=== PATIENT | male | born 1950 | race Caucasian/White ===

== ENCOUNTER 2019-11-03 04:50 | Inpatient (IN) ==
--- NOTE | 2019-10-13 16:04 | PAT Medication Instructions ---
Medication Instructions Date of Service October 13, 2019 Home Medications Viagra 1 tab PO UD PRN fexofenadine-pseudoephedrine [Dayna-D 12 Hour] 1 tab PO Q12H PRN latanoprost 1 drp OPHTHALMIC (EYE) PM rosuvastatin 20 mg PO QPM timolol 1 drp OPHTHALMIC (EYE) BID valsartan 160 mg PO QAM DO NOT take the morning of surgery Viagra 1 tab PO UD PRN fexofenadine-pseudoephedrine [Dayna-D 12 Hour] 1 tab PO Q12H PRN valsartan 160 mg PO QAM Take morning of surgery With a small sip of water, OTHERWISE NOTHING TO EAT OR DRINK AFTER MIDNIGHT: timolol 1 drp OPHTHALMIC (EYE) BID Take evening before surgery Viagra 1 tab PO UD PRN (if needed) fexofenadine-pseudoephedrine [Dayna-D 12 Hour] 1 tab PO Q12H PRN (if needed) latanoprost 1 drp OPHTHALMIC (EYE) PM rosuvastatin 20 mg PO QPM timolol 1 drp OPHTHALMIC (EYE) BID Other Notes If you have any questions please call us at [phone] or [phone] or [phone] or [phone]
--- NOTE | 2019-10-14 14:33 | Anesthesiology Consultation ---
Date of Service October 14, 2019 Assessment & Plan (1) Encounter for pre-operative examination: PCP clearance 10/28/2019 = Dr. Aguilar placed on verapamil after LV outflow more moderate on this year's echo and no other recommendations from today based on normal labs, EKG and chest x-ray... Will be getting Holter and MRI cardiac after surgery and has appointment with Coumadin in November... Patient cleared medically and will take valsartan day prior around noon and verapamil on morning of." Cardiology clearance (Lauren) 10/20/2019: He has good functional status at greater than 4 METS despite his severely arthritic knees, has no cardiac symptoms and was clinically euvolemic today. We should proceed with surgery, excepting a cardiovascular risk involved. An ischemic evaluation is not indicated. He does have hypertrophic cardiomyopathy with a mild gradient. I am commencing a low-dose calcium channel asad, namely verapamil 120 mg daily, which should also be taken on the morning of surgery. I have asked him to stay hydrated at all times. I believe the surgery is scheduled under epidural anesthesia; I reiterate that euvolemia should be maintained at all times; should he develop hypotension, perioperatively, he should be treated with IV fluids and Shawn-Synephrine/phenylephrine. Inotropes and other pressors will be contraindicated and should not be used." Case discussed with Dr. Sheppard. OK to proceed based on cardiology recommendations and patient's good functional status, but due to risk of hypotension spinal anesthesia contraindicated. Surgeon's office notified. Chart Review Chart Review: Acceptable Risk for Surgery and Patient seen in Pre Admission Testing Consults Requested medical & cardiac Teaching & Discussion Instructed NPO after midnight before surgery, except medications with 15 cc of water. Medication instructions provided according to the PAT guidelines. History Surgery Operation Date: 11/03/19 09:30 Proposed Procedures p Bilateral Total Knee Arthroplasty - Garth Owne DO Height/Weight Height: 5 ft 9 in Weight: 98.5 kg Allergies Allergy/AdvReac Type Severity Reaction Status Date / Time No Known Allergies Allergy Verified 10/07/19 10:49 Medications Home Medications Medication Instructions Recorded Confirmed Last Taken Viagra 1 tab PO UD PRN 10/07/19 10/07/19 Unknown fexofenadine-pseudoephedrine 1 tab PO Q12H PRN 10/07/19 10/07/19 Unknown [Dayna-D 12 Hour] latanoprost 1 drp OPHTHALMIC (EYE) PM 10/07/19 10/07/19 Unknown rosuvastatin 20 mg PO QPM 10/07/19 10/07/19 Unknown timolol 1 drp OPHTHALMIC (EYE) BID 10/07/19 10/07/19 Unknown valsartan 160 mg PO QAM 10/07/19 10/07/19 Unknown Past Medical History Medical History Asymmetric septal hypertrophy 1.8CM, with PATRICK of the mitral valve with a peak gradient of 23mmHg on echo 10/13/19. Calculus of parotid gland lump on pt's neck - ultrasound inconclusive, PCP believes to be a parotid gland stone. Pt to have neck CT, PCP following. Glaucoma [place] (hard of hearing) Hyperlipidemia Hypertension Obesity Osteoarthritis Sleep apnea CPAP Exercise / Class Metabolic Activity II 4-5 Yardwork/Stairs/Walk up hill (denies CP or SOB with 1 FOS. Has 13 steps to enter house, does multiple times per day without CP symptoms.) Past Surgical History Surgical History History of colonoscopy History of tonsillectomy Past Anesthesia History No Hx of Anesthesia Complications and No Family Hx of Anesthesia Complications History of PONV No Hx of PONV and No Hx of Motion Sickness Social History Smoking Status: Never smoker Do You Dip or Chew Tobacco: No Hx Alcohol Use: Yes Alcohol type: beer alcohol intake frequency: a few times a week Hx Substance Use: No substance use type: does not use Review of Systems Pt denies any recent chest pain, shortness of breath, palpitations, cough, fever or URI. Physical Exam Vital Signs BP: 144/83 P: 66bpm SPO2: 97% RA T: 97.9 F R: 12 ENMT Mouth: + dental restorations (one implant R side); no chipped teeth and no loose teeth Thyromental Distance: < 3.5 Finger Breadths (2) Mallampati Class: III Neck normal visual inspection; neck extension not limited Respiratory normal respiratory effort Auscultation: lungs clear to auscultation bilaterally Cardiovascular Rate/Rhythm: regular rate and regular rhythm Heart Sounds: + murmur (II/ systolic loudest at RSB and mitral areas) Vessels: no carotid bruit Extremities: no edema Testing Laboratory Results 10/14/19 14:45 10/14/19 14:45 PT 10.1 Seconds (9.0-12.0) 10/14/19 14:45 INR 1.0 (0.9-1.1) 10/14/19 14:45 APTT 24.8 Seconds (21.0-31.0) 10/14/19 14:45 Hemoglobin A1c 4.9 % (4.5-5.6) 10/14/19 14:45 Urine Color Yellow 10/14/19 14:45 Urine Appearance Clear (Clear) 10/14/19 14:45 Urine pH 7.0 (4.5-7.5) 10/14/19 14:45 Ur Specific [place] 1.013 (1.000-1.030) 10/14/19 14:45 Urine Protein Negative (Negative) 10/14/19 14:45 Urine Glucose (UA) Negative (Negative) 10/14/19 14:45 Urine Ketones Negative (Negative) 10/14/19 14:45 Urine Nitrite Negative (Negative) 10/14/19 14:45 Ur Leukocyte Esterase Negative (Negative) 10/14/19 14:45 Blood Type A Positive 10/14/19 14:45 Antibody Screen NEGATIVE 10/14/19 14:45 10/14/19 14:45 Urine Culture - Final Urine,Clean Catch No growth - less than 1,000 colonies/mL. Electrocardiogram Date: 10/14/19 Findings: + NSR @ (65bpm) Left axis deviation. Chest X-Ray Date: 10/14/19 Findings: + NAD Echocardiogram Date: 10/13/19 EF: 60-65% Moderate asymmetric septal hypertrophy (1.8 cm) with PATRICK of the mitral valve with a peak gradient of 23 mmHg across the LVOT at resting EF of 60 to 65%. Right ventricle is normal in size and contractility. Degenerative aortic valve with mean gradient of 15 mmHg across it, which is obscured by the gradient across the LVOT.
--- NOTE | 2019-10-14 15:18 | XRay Report ---
XR chest Pre-admission PA/Lat HISTORY: 68 years-old Male pat preoperative exam. No acute chest complaints COMPARISON: None available TECHNIQUE: PA and lateral views of the chest FINDINGS: Mild blunting of the posterior costophrenic angles may be secondary to atelectasis versus trace effus ions. Cardiac silhouette is mildly enlarged. No pneumothorax, overt pulmonary edema or focal airspace consolidation. Degenerative changes of the shoulders and spine. IMPRESSION: No acute process. The above report was generated using voice recognition software. It may contain grammatical, syntax o r spelling errors. Electronically signed by: Arcadio Mayes M.D. 10/14/2019 3:16 PM
[2019-10-14 15:30] LABS: Basophils # (auto) 0.05 K/uL (0-0.2); Basophils % (auto) 0.6 %; Eosinophils # (auto) 0.12 K/uL (0-0.5); Eosinophils % (auto) 1.4 %; Hematocrit (blood only) 45.3 % (42-52); Hemoglobin 15.8 g/dL (14.0-18.0); Immature Granulocytes # (auto) 0.02 K/uL (0.00-0.02); Immature Granulocytes % (auto) 0.2 %; Lymphocytes # (auto) 2.18 K/uL (1.2-3.4); Lymphocytes % (auto) 26.2 %; Mean Corpuscular Hemoglobin 30.9 pg (25-34); Mean Corpuscular Hgb Conc 34.9 g/dL (32-36); Mean Corpuscular Volume 88.5 fL (80-100); Mean Platelet Volume 10.6 fL (7.4-10.4); Monocytes # (auto) 0.47 K/uL (0.11-0.59); Monocytes % (auto) 5.7 %; Neutrophils # (auto) 5.47 K/uL (1.4-6.5); Neutrophils % (auto) 65.9 %; Platelet Count 199 K/uL (130-400); RDW Coefficient of Variation 12.7 % (11.5-14.5); RDW Standard Deviation 40.8 fL (36.4-46.3); Red Blood Count 5.12 M/uL (4.7-6.1); White Blood Count 8.31 K/uL (4.8-10.8)
[2019-10-14 15:37] LABS: Albumin Level 4.4 gm/dl (3.4-5.0); BUN Creatinine Ratio 14.8 (10-20); Calcium 9.4 mg/dl (8.5-10.1); Creatinine Clr Calc Pharmacy 95.6 ml/min; Est GFR (African American) 103.7; Est GFR (Non-African American) 89.5; Potassium 4.2 mmol/L (3.5-5.1)
[2019-10-14 15:40] LABS: Appearance Urine Clear (Clear); Bilirubin Urine Negative (Negative); Blood Urine Negative (Negative); Color Urine Yellow; Glucose Urine UA Negative (Negative); Ketones Urine Negative (Negative); Leukocyte Esterase Urine Negative (Negative); Nitrite Urine Negative (Negative); Protein Urine Negative (Negative); Specific Gravity Urine 1.013 (1.000-1.030); Urobilinogen Urine Negative (Negative)
[2019-10-14 15:42] LABS: Partial Thromboplastin Ratio 0.9; Partial Thromboplastin Time 24.8 Seconds (21.0-31.0); Prothrombin Time 10.1 Seconds (9.0-12.0)
[2019-10-15 06:26] LABS: Estimated Average Glucose 94 mg/dl; Hemoglobin A1C 4.9 % (4.5-5.6)
--- NOTE | 2019-11-02 12:55 | History & Physical Report ---
Date of Service November 02, 2019 Assessment & Plan (1) Degenerative joint disease of knee, right: I have indicated the patient for bilateral total knee replacements. The risks, benefits and complications of surgery were explained to the patient which include but not limited to infection, acute blood loss, DVT/PE, injury to nerves, vessels, bone, soft tissue, arthrofibrosis, chronic pain, failure of the prosthesis, knee dislocation, leg length discrepancy, need for additional surgery, cardiac and pulmonary events and . Emphasis was placed on increased risks associated with bilateral total knee replacements. The patient expressed understanding and all questions were answered to satisfaction. The patient wished to proceed with surgery and informed consent was obtained at this time. We will plan for Lovenox post-operatively for DVT prophylaxis. Upon discharge the patient will be discharged home with home health services. Appropriate clearances by PCP and cardiology were obtained. (2) Degenerative joint disease of left knee: History of Present Illness Chief Complaint: Bilateral knee pain/djd Primary Care Provider: CYNDI SHAH The patient is a 68 year old male who presents with complaints of severe bilateral knee pain and DJD. The patient has failed outpatient conservative treatments to this point which included NSAIDs, IA corticosteroid injections, home exercise/walking program. The patient's pain and limited function have progressed to the point where they severely hinder their activities of daily kendall ing and they no longer tolerate exercise programs. They are requesting to proceed with total knee replacement surgery. Allergies Allergy/AdvReac Type Severity Reaction Status Date / Time No Known Allergies Allergy Verified 11/03/19 05:37 Home Medications Home Medications Medication Instructions Recorded Confirmed Type Viagra 1 tab PO UD PRN 10/07/19 11/03/19 History fexofenadine-pseudoephedrine 1 tab PO Q12H PRN 10/07/19 11/03/19 History [Dayna-D 12 Hour] latanoprost 1 drp OPHTHALMIC (EYE) PM 10/07/19 11/03/19 History rosuvastatin 20 mg PO QPM 10/07/19 11/03/19 History timolol 1 drp OPHTHALMIC (EYE) BID 10/07/19 11/03/19 History valsartan 160 mg PO QAM 10/07/19 11/03/19 History verapamil 120 mg PO DAILY 11/03/19 11/03/19 History Past Med/Surg History Medical History Asymmetric septal hypertrophy 1.8CM, with PARTICK of the mitral valve with a peak gradient of 23mmHg on echo 10/13/19. Calculus of parotid gland lump on pt's neck - ultrasound inconclusive, PCP believes to be a parotid gland stone. Pt to have neck CT, PCP following. Glaucoma [place] (hard of hearing) Hyperlipidemia Hypertension Obesity Osteoarthritis Sleep apnea CPAP Surgical History History of colonoscopy History of tonsillectomy Social History Preferred Language: Welsh Communication Ability: Effective Sweat Box Attendant Required: No Beliefs That Will Affect Care: None Current Living Situation: Spouse Other Information That Helps Us Care for You: No Feels Safe at Home: Yes Safety Concerns: Feels Safe At This Time Smoking Status: Never smoker Do You Dip or Chew Tobacco: No ; Second Hand Exposure: Yes (as a child) ; Hx Alcohol Use: Yes Alcohol type: beer Hx Substance Use: No Review of Systems Review of Systems: All systems reviewed & are unremarkable except as noted in HPI & below Constitutional: as per Subjective / HPI Physical Exam Physical Exam: RLE NVSI +EHL/FHL/TA/GS SILT grossly, +2 DP pulse, compartments soft NT, limited painful ROM 0-115 degrees of flexion, +crepitus LLE NVSI +EHL/FHL/TA/GS SILT grossly, +2 DP pulse, compartments soft NT, limited painful ROM 0-115 degrees of flexion, +crepitus Constitutional: WD/WN, vitals as above Eyes: PERRL, conjunctivae normal, anicteric sclerae ENMT: external ear and nose normal, oropharynx normal Neck: trachea midline, no thyromegaly Respiratory: normal respiratory effort, lungs clear to auscultation Cardiovascular: RRR, no murmur, no edema Gastrointestinal (Abdomen): normal bowel sounds, soft, nontender, no hepatosplenomegaly Musculoskeletal: no cyanosis or clubbing, extremities motor strength 5/5 Skin: no rashes, warm and dry Neurologic: patellar DTR's 2+ bilat, sensation intact Psychiatric: A+Ox3, euthymic affect Lymphatic: no cervical or axillary lymphadenopathy Results & Data Diagnostic Findings Multiple views of bilateral knees demonstrate severe tricompartmental DJD with complete loss of the medial and near complete loss of the patellofemoral joint spaces. +osteophytes, +sclerosis.
[2019-11-03] MEDS ORDERED: CEFAZOLIN 2000MG 2,000 MG/15 ML SYR IV SCH (06:00)
[2019-11-03] MEDS ORDERED: ACETAMINOPHEN 500 MG TAB PO SCH (06:00)
[2019-11-03] MEDS ORDERED: ROPIVACAINE 0.5% HCL/PF 150 MG, BUPIVACAINE 0.5% MPF 30 ML, EPINEPHrine 30MG/30ML (OR U... INFIL SCH (06:00)
[2019-11-03] MEDS ORDERED: LR 500ML BOLUS, THEN 15ML/HR IV SCH (06:00)
[2019-11-03] MEDS ORDERED: dexAMETHasone 4 MG TAB PO SCH (06:00)
[2019-11-03] MEDS ORDERED: CeleBREX 200 MG CAP PO SCH (06:00)
[2019-11-03] MEDS ORDERED: METOCLOPRAMIDE HCL 10 MG TABLET PO SCH (06:00)
[2019-11-03] MEDS ORDERED: FAMOTIDINE 20 MG TAB PO SCH (06:00)
[2019-11-03] MEDS ORDERED: TRANEXAMIC ACID 1,000 MG **IV Pre-op IV SCH (06:00)
[2019-11-03] MEDS ORDERED: ROPIVACAINE 0.5% 5 MG/ML 30 ML VIAL ONE (06:28)
[2019-11-03] MEDS ORDERED: BUPIVACAINE 0.5 % 5 MG/1 ML PF 10ML VIAL ONE (06:28)
[2019-11-03] MEDS ORDERED: TRANEXAMIC ACID 1,000 MG **IV Intra-op IV SCH (06:30)
[2019-11-03] MEDS ORDERED: ORTHO JOINT ANESTHETIC ONE (06:36)
[2019-11-03] MEDS ORDERED: BACITRACIN INJ 50,000 UNIT VIAL ONE (06:36)
[2019-11-03] MEDS ORDERED: MIDAZOLAM HCL 1 MG/ML 2ML VIAL ONE ×4 (06:48→08:02)
--- NOTE | 2019-11-03 06:48 | History & Physical Bridge Note ---
Date of Service November 03, 2019 History & Physical Bridge Note I have examined the patient, reviewed the History & Physical and in the interval since the performance of the History & Physical I have noted the following changes of clinical significance: no changes noted
[2019-11-03] MEDS ORDERED: fentaNYL citrate 100 MCG/2 ML VIAL ONE (06:49)
[2019-11-03] MEDS ORDERED: METOCLOPRAMIDE HCL INJ 5 MG/ML 2 ML VIAL IV PRN ×2 (07:53→11:48)
[2019-11-03] MEDS ORDERED: ONDANSETRON INJ 2 MG/ML 2 ML VIAL IV PRN ×2 (07:53→11:48)
[2019-11-03] MEDS ORDERED: ePHEDrine sulfate 50 MG/ML AMP IV PRN (07:53)
[2019-11-03] MEDS ORDERED: PROMETHAZINE HCL 12.5 MG in SODIUM CHLORIDE 0.9% 50 ML IV PRN (07:53)
[2019-11-03] MEDS ORDERED: HYDROmorphone INJ 2 MG/ML SYR/VIAL IV PRN (07:53)
[2019-11-03] MEDS ORDERED: fentaNYL citrate 100 MCG/2 ML VIAL IV PRN (07:53)
[2019-11-03] MEDS ORDERED: ATROPINE SULFATE 0.1 MG/ML 10ML SYR IV PRN (07:53)
[2019-11-03] MEDS ORDERED: PROPOFOL IV EMULSION 10 MG/ML 20 ML VIAL IV ONE ×3 (08:02→10:30)
[2019-11-03] MEDS ORDERED: PHENYLEPHRINE HCL 10 MG/ML VIAL ONE (08:06)
[2019-11-03] MEDS ORDERED: PHENYLEPHRINE 100MCG/ML 5ML SYR ONE ×2 (08:06→08:47)
--- NOTE | 2019-11-03 10:23 | Post Operative Brief Note ---
Immediate Post Op Note v1 Date of Surgery November 03, 2019 Pre & Post Diagnosis Operation Date: 11/03/19 07:00 Pre-Op Diagnosis: Bilateral Knee Degenerative Joint Disease Post-Op Diagnosis: Bilateral Knee Degenerative Joint Disease I identified the patient and participated in the time-out.: Yes Procedure Operation Date: 11/03/19 07:00 Actual Procedures p Bilateral Total Knee Arthroplasty(Bilateral) - Garth Oewn DO Surgeon Garth Owen DO Hydrotherapist Cyrus Cobb Estimated Blood Loss 100 (50 ml right knee, 50 ml left knee) Findings Consistent with Post-Op Diagnosis Fluids 3000 cc LR Specimens Proximal tibia and distal femur bone fragments Drains Moreno Catheter (A 16 [place] moreno catheter was inserted by Charlotte Li RN, without difficulty, clear yellow urine obtained, output to be monitored by Anesthesia.) Anesthesia Type Spinal MAC Complications none Disposition Disposition: Recovery Room Overlapping Procedure I was present for: the critical portions of procedure. I was immediately available: during the entire case. Back up surgeon: was not required during procedure.
[2019-11-03] MEDS ORDERED: ONDANSETRON INJ 2 MG/ML 2 ML VIAL ONE (10:30)
--- NOTE | 2019-11-03 10:35 | Operative Report ---
Post Operative Report Pre & Post Diagnosis Operation Date: 11/03/19 07:00 Pre-Op Diagnosis: Bilateral Knee Degenerative Joint Disease Post-Op Diagnosis: Bilateral Knee Degenerative Joint Disease I identified the patient and participated in the time-out.: Yes Procedure Operation Date: 11/03/19 07:00 Actual Procedures p Bilateral Total Knee Arthroplasty(Bilateral) - Garth Owen DO Surgeon Garth Owen, Supervisor [employer] Cyrus Cobb Estimated Blood Loss 100 (50 ml right knee, 50 ml left knee) Findings Consistent with Post-Op Diagnosis Fluids 300 cc KR Specimens Proximal tibia and distal femur bone fragments Anesthesia Type Spinal MAC Complications none Disposition Disposition: Recovery Room Indications The patient is a 62-year-old male presents with long history of severe bilateral knee tricompartmental DJD and failed outpatient conservative treatments including NSAIDs, injections and home walking/exercise program. The patient's symptoms have progressed to the point where it has been difficult to perform normal activities of daily living. I have indicated the patient for a bilateral total knee arthroplasty, the risks and benefits and complications of the procedure include but are not limited to infection bleeding damage to bone, nerves, vessels, surrounding soft tissue, blood clots, loss of function, leg length discrepancy, dislocation, failure of the components, need for additional surgery and . The patient wished to proceed with surgery at this time and informed consent was obtained. Appropriate clearances were obtained. Description of Procedure COMPONENTS USED: Marianne persona total knee system: Left: Femur size 8, Tibia size G tibial articulating surface 13 PS, Patella 35 mm Right: Femur size 8, Tibia size G tibial articulating surface 11 PS, Patella 35 mm Following induction of spine anesthesia, a tourniquet was applied to the proximal aspect of bilateral thighs and the patient's bilateral legs were prepped and draped in the usual sterile manner. A timeout was performed, patient identified and site jamaal confirmed. Appropriate pre-operative IV antibiotics were given. The right limb was exsanguinated with an Esmarch bandage and tourniquet was inflated to 300 mmHg. A longitudinal midline incision was made over the anterior knee. Subcutaneous tissue was sharply disse cted down to fascia. Electrocautery was used for hemostasis. Next a parapatellar arthrotomy was performed. Patella was everted and the knee was flexed. A Donnelly retractor was used to expose the synovium above on the anterior aspect of the femur and removed down to bone. Next, the anterior fat pad was removed to aid in visualization. The medial face of the tibia was cleared of soft tissue first with a Bovie and a meraz elevator. This tissue was retracted posteriorly using a blunt Hohmann. Next, the extra-medullary tibial cutting guide was placed to the anterior aspect of the tibia. The tibia resection level was set taking 2mm from the defective tibial condyle. Resection depth was once again confirmed with jay jay wing. The medial and lateral collateral ligament was protected with two Hohmann retractors. The tibia guide was removed and proximal tibial bone fragment removed utilizing straight osteotome, electrocautery and Carmelo. Next, the distal femur intramedullary canal was accessed utilizing the step drill. The intramedullary distal femur cutting guide was placed into the canal and pinned into place. The distal femur was cut on the 5 degree +0 setting. Next the cutting guide was removed and the femur was sized. Care was taken to ensure appropriate health it specialist all rotation and 3 degree holes were drilled. A size 8 4-in-1 cutting block was placed on the distal end of the femur and secured into place with two short headed screws. Two bent Hohmann retractors were placed to protect the medial and lateral collateral ligaments. The oscillating saw was used to cut anterior, posterior, anterior chamfer and posterior chamfer. The four and one cutting block was removed and bone fragments excised. Laminar acute care registered nurse was placed laterally and the ACL and PCL were removed followed by the medial meniscus and posterior medial osteophytes. Aquamantys was utilized for any posterior medial bleeders and Orthomix injected into the posterior medial capsule. A laminar acute care registered nurse was then placed in the medial compartment and the lateral meniscus and posterior osteophytes were removed. Aquamantys was utilized for any posterior lateral bleeders and Orthomix injected into the posterior lateral capsule. Next, drop hilda and spacer block were placed with the leg in flexion and extension to assess alignment and flexion/extension gaps. Next, the proximal tibia was assessed and two bent Hohmans were placed medial and lateral to aid in visualization. The appropriate tibia size and rotation was selected and a size G tibial plate was pinned into place with appropriate rotation. Preparation of the tibia was completed utilizing the matching tibial drill and broach. I then turned my attention back to the distal femur in a trial femoral component was impacted into place. Appropriate femoral width was assessed and selected. Next the femur PS box cut guide was placed and cut made with the reciprocal saw and the PS box provisional placed. A trial size 10 PS tibia articular tray was placed and varus-valgus balance assessed in 0 degrees of extension and 30, 60 and 90 degrees of flexion. A final tibial articular surface size 11 PS was chosen. Assess was gained to the patella and caliper utilized to measure width. The patella reamer was utilized and remaining bone removed with oscillating saw. A size 35 mm patella button was selected and the patella pegs drilled. Trial patella button was placed and tracking was assessed. The knee was found to be well balanced, well aligned with excellent patella tracking. The trials were removed and final components were obtained and assembled. The knee was irrigated copiously with sterile saline solution mixed with bacitracin. Access to the proximal tibia was once again obtained utilizing to the Hohmans and the proximal tibia and distal femur were dried with lap sponges. The final components were cemented into place and all excess cement was removed. A trial tibial articular surface was placed while cemented hardened. Knee stability was once again assessed and the final component inserted. A Betadine soak was performed. After 3 minutes, the hip was once more irrigated with copious sterile saline solution with bacitracin. The knee was injected with the remaining Orthomix which includes a combination of Ropivicaine 0.5% 150mg, Bupivicaine 0.5%/Epinephrine 1:200,000 30ml, Toradol 30mg, Dexamethasone 4mg, Ketamine 10mg, Clonidine 100mcg and NSS 30ml solution. The capsulotomy was closed with #1 Vicryl followed by subcutaneous closure with 2-0 Vicryl suture and a 3-0 V-lock suture. Skin closure was performed using Prineo dressing followed by Telfa, 4 x 4s and kayla wrap. Tourniquet was deflated at 86 minutes. A second timeout was performed, patient identified and site jamaal confirmed. Appropriate pre-operative IV antibiotics were verified given. The left limb was exsanguinated with an Esmarch bandage and tourniquet was inflated to 300 mmHg. A longitudinal midline incision was made over the anterior knee. Subcutaneous tissue was sharply dissected down to fascia. Electrocautery was used for hemostasis. Next a parapatellar arthrotomy was performed. Patella was everted and the knee was flexed. A Donnelly retractor was used to expose the synovium above on the anterior aspect of the femur and removed down to bone. Next, the anterior fat pad was removed to aid in visualization. The medial face of the tibia was cleared of soft tissue first with a Bovie and a meraz elevator. This tissue was retracted posteriorly using a blunt Hohmann. Next, the extra-medullary tibial cutting guide was placed to the anterior aspect of the tibia. The tibia resection level was set taking 2mm from the defective tibial condyle. Resection depth was once again confirmed with jay jay wing. The medial and lateral collateral ligament was protected with two Hohmann retractors. The tibia guide was removed and proximal tibial bone fragment removed utilizing straight osteotome, electrocautery and Carmelo. Next, the distal femur intramedullary canal was accessed utilizing the step drill. The intramedullary distal femur cutting guide was placed into the canal and pinned into place. The distal femur was cut on the 5 degree +0 setting. Next the cutting guide was removed and the femur was sized. Care was taken to ensure appropriate health it specialist all rotation and 3 degree holes were drilled. A size 8 4-in-1 cutting block was placed on the distal end of the femur and secured into place with two short headed screws. Two bent Hohmann retractors were placed to protect the medial and lateral collateral ligaments. The oscillating saw was used to cut anterior, posterior, anterior chamfer and posterior chamfer. The four and one cutting block was removed and bone fragments excised. Laminar acute care registered nurse was placed laterally and the ACL and PCL were removed followed by the medial meniscus and posterior medial osteophytes. Aquamantys was utilized for any posterior medial bleeders and Orthomix injected into the posterior medial capsule. A laminar acute care registered nurse was then placed in the medial compartment and the lateral meniscus and posterior osteophytes were removed. Aquamantys was utilized for any posterior lateral bleeders and Orthomix injected into the posterior lateral capsule. Next, drop hilda and spacer block were placed with the leg in flexion and extension to assess alignment and flexion/extension gaps. Next, the proximal tibia was assessed and two bent Hohmans were placed medial and lateral to aid in visualization. The appropriate tibia size and rotation was selected and a size G tibial plate was pinned into place with appropriate rotation. Preparation of the tibia was completed utilizing the matching tibial drill and broach. I then turned my attention back to the distal femur in a trial femoral component was impacted into place. Appropriate femoral width was assessed and selected. Next the femur PS box cut guide was placed and cut made with the reciprocal saw and the PS box provisional placed. A trial size 12 PS tibia articular tray was placed and varus-valgus balance assessed in 0 degrees of extension and 30, 60 and 90 degrees of flexion. A final tibial articular surface size 13 PS was chosen. Assess was gained to the patella and caliper utilized to measure width. The patella reamer was utilized and remaining bone removed with oscillating saw. A size 35 mm patella button was selected and the patella pegs drilled. Trial patella button was placed and tracking was assessed. The knee was found to be well balanced, well aligned with excellent patella tracking. The trials were removed and final components were obtained and assembled. The knee was irrigated copiously with sterile saline solution mixed with bacitracin. Access to the proximal tibia was once again obtained utilizing to the Hohmans and the proximal tibia and distal femur were dried with lap sponges. The final components were cemented into place and all excess cement was removed. A trial tibial articular surface was placed while cemented hardened. Knee stability was once again assessed and the final component inserted. A Betadine soak was performed. After 3 minutes, the hip was once more irrigated with copious sterile saline solution with bacitracin. The knee was injected with the remaining Orthomix which includes a combination of Ropivicaine 0.5% 150mg, Bupivicaine 0.5%/Epinephrine 1:200,000 30ml, Toradol 30mg, Dexamethasone 4mg, Ketamine 10mg, Clonidine 100mcg and NSS 30ml solution. The capsulotomy was c losed with #1 Vicryl followed by subcutaneous closure with 2-0 Vicryl suture and a 3-0 V-lock suture. Skin closure was performed using Prineo dressing followed by Telfa, 4 x 4s and kayla wrap. Tourniquet was deflated at 87 minutes. The patient tolerated the procedures well and was taken to the PACU in stable condition. Due to the complex nature of the procedure, the entire surgery was performed with the operational assistance of Cyrus cobb PA-C. The operator/assistant foreman, under direct supervision, was involved in the actual performance of all aspects of the surgical procedure including patient positioning, hemostasis, tissue retraction, instrument management and wound closure. I attest to the content of the Intraoperative Record and any orders documented therein. Any exceptions are noted below.
--- NOTE | 2019-11-03 11:26 | Anesthesiology Progress Note ---
Date of Service November 03, 2019 Anesthesia Post Procedure Vital Signs Vital Signs: Temp Pulse Resp BP Pulse Ox 11/03/19 11:20 36.4 C L 77 20 131/71 94 11/03/19 11:10 79 14 125/68 96 11/03/19 11:00 83 23 120/73 94 11/03/19 10:50 36.4 C L 84 18 112/65 98 11/03/19 05:43 36.8 C 97 H 18 155/80 H 97 Pain Intensity Bilateral Knee: Pain Intensity: 5 Transfer of Care Handoff Completed per policy Notes Mental Status: alert / awake / arousable and participated in evaluation Patient Amnestic to Procedure: Yes Nausea / Vomiting: adequately controlled Pain: adequately controlled Airway Patency, RR, SpO2: stable & adequate BP & HR: stable & adequate Hydration State: stable & adequate Neuraxial Anesthesia: was administered and sensory block is resolving Anesthetic Complications: no major complications apparent
--- NOTE | 2019-11-03 11:45 | XRay Report ---
XR knee RT 1 or 2V routine CLINICAL HISTORY: 68 years-old Male presenting with Surgical Post Op. TECHNIQUE: Frontal and crosstable lateral views of the right knee were obtained. COMPARISON: None. FINDINGS: Post surgical changes of total right knee arthroplasty with patellar resurfacing. Expected intra-sonal cular and soft tissue emphysema. A large joint effusion is present. No periprosthetic fracture or gaye ency. No malalignment. IMPRESSION: Expected postsurgical appearance status post total right knee arthroplasty with patellar resurfacing. Electronically signed by: Tu Marley M.D. 11/03/2019 11:43 AM
--- NOTE | 2019-11-03 11:46 | XRay Report ---
XR knee LT 1 or 2V routine CLINICAL HISTORY: 68 years-old Male presenting with Surgical Post Op. TECHNIQUE: Frontal and crosstable lateral views of the left knee were obtained. COMPARISON: None. FINDINGS: Postsurgical changes of total left knee arthroplasty with patellar resurfacing. Expected intra-articu lar and soft tissue emphysema. No malalignment. No periprosthetic fracture or lucency. IMPRESSION: Expected postsurgical appearance status post total left knee arthroplasty with patellar resurfacing. Electronically signed by: Tu Marley M.D. 11/03/2019 11:44 AM
[2019-11-03] MEDS ORDERED: NALOXONE HCL 0.4 MG/1 ML VIAL/CARP IV PRN (11:48)
[2019-11-03] MEDS ORDERED: bisacodyL 10 MG SUPP PR PRN (11:48)
[2019-11-03] MEDS ORDERED: HYDROmorphone INJ 0.5 MG/0.5 ML SYR IV PRN (11:48)
[2019-11-03] MEDS ORDERED: MAGNESIUM HYDROXIDE SUSP 30 ML UDC PO PRN (11:48)
[2019-11-03] MEDS ORDERED: SODIUM CHLORIDE 0.9% 1000ML 1,000 ML IV SCH (11:48)
[2019-11-03] MEDS: ACETAMINOPHEN 500 MG TAB PO SCH ×2 (13:24→21:24)
[2019-11-03] MEDS: OXYCODONE HCL IR 5 MG TAB (IMMEDIATE RELEASE) PO PRN (13:27)
[2019-11-03] MEDS: CEFAZOLIN 2000MG 2,000 MG/15 ML SYR IV SCH ×2 (15:26→23:21)
--- NOTE | 2019-11-03 18:30 | Orthopedic Progress Note ---
Date of Service November 03, 2019 Assessment & Plan (1) Degenerative joint disease of knee, right: s/p B/L TKA -ancef x 24 -DVT ppx: SCDs, TEDs, Lovenox daily -WBAT B/L LE -PT/OT -PO XR demonstrates well aligned well fixed b/l total knee prothesis without fracture/dislocation -am labs -DC planning (2) Degenerative joint disease of left knee: Subjective Post Operative Progress Note Patient seen sitting up in bed, comfortable, denies complaints, pain well controlled, no acute issues. Review of Systems Review of Systems: All systems reviewed & are unremarkable except as noted in HPI & below Constitutional: as per Subjective / HPI Physical Exam Physical Exam: RLE NVSI +EHL/FHL/TA/GS SILT grossly, +2 DP pulse, compartments soft NT, dressing cdi. LLE NVSI +EHL/FHL/TA/GS SILT grossly, +2 DP pulse, compartments soft NT, dressing cdi. Constitutional: WD/WN, vitals as above Results & Data Vital Signs (Past 12 Hours) Vital Signs Temp Pulse Resp BP Pulse Ox 11/03/19 14:46 36.5 C 85 18 123/81 96 11/03/19 13:45 36.8 C 87 18 127/68 96 11/03/19 12:46 86 18 132/73 95 11/03/19 12:14 36.4 C L 77 18 124/69 96 11/03/19 11:45 36.4 C L 79 16 123/70 94 11/03/19 11:30 79 18 127/73 92 11/03/19 11:20 36.4 C L 77 20 131/71 94 11/03/19 11:10 79 14 125/68 96 11/03/19 11:00 83 23 120/73 94 11/03/19 10:50 36.4 C L 84 18 112/65 98
[2019-11-03] MEDS: LATANOPROST 0.005% OP SOLN 2.5 ML BTL OPB SCH (20:03)
[2019-11-03] MEDS: DOCUSATE SODIUM 100 MG CAP PO SCH (20:04)
[2019-11-03] MEDS: TIMOLOL MALEATE 0.5% OP SOLN 5 ML BTL OPB SCH (20:04)
[2019-11-03] MEDS: ROSUVASTATIN CALCIUM 20 MG TAB PO SCH (20:04)
[2019-11-03] MEDS: SENNA 8.6 MG TAB PO SCH (20:04)
[2019-11-04] MEDS: OXYCODONE HCL IR 5 MG TAB (IMMEDIATE RELEASE) PO PRN ×5 (03:02→21:23)
[2019-11-04 05:19] LABS: Hemoglobin 12.2 g/dL (14.0-18.0); Mean Corpuscular Hemoglobin 30.4 pg (25-34); Mean Corpuscular Hgb Conc 34.9 g/dL (32-36); Mean Corpuscular Volume 87.3 fL (80-100); Mean Platelet Volume 10.6 fL (7.4-10.4); Platelet Count 190 K/uL (130-400); RDW Coefficient of Variation 12.6 % (11.5-14.5); RDW Standard Deviation 40.6 fL (36.4-46.3); Red Blood Count 4.01 M/uL (4.7-6.1); White Blood Count 18.54 K/uL (4.8-10.8)
[2019-11-04 05:44] LABS: Calcium 8.1 mg/dl (8.5-10.1); Creatinine Clr Calc Pharmacy 83.2 ml/min; Est GFR (African American) 89.4; Est GFR (Non-African American) 77.1; Potassium 4.2 mmol/L (3.5-5.1)
[2019-11-04] MEDS: ACETAMINOPHEN 500 MG TAB PO SCH ×3 (05:58→21:25)
--- NOTE | 2019-11-04 08:12 | Anesthesiology Progress Note ---
Date of Service November 04, 2019 Anesthesia Post Procedure Vital Signs Vital Signs: Temp Pulse Resp BP Pulse Ox 11/04/19 02:52 36.7 C 92 H 16 123/66 97 11/03/19 22:55 36.5 C 89 16 137/72 95 11/03/19 14:46 36.5 C 85 18 123/81 96 11/03/19 13:45 36.8 C 87 18 127/68 96 11/03/19 12:46 86 18 132/73 95 11/03/19 12:14 36.4 C L 77 18 124/69 96 11/03/19 11:45 36.4 C L 79 16 123/70 94 11/03/19 11:30 79 18 127/73 92 11/03/19 11:20 36.4 C L 77 20 131/71 94 11/03/19 11:10 79 14 125/68 96 11/03/19 11:00 83 23 120/73 94 11/03/19 10:50 36.4 C L 84 18 112/65 98 Pain Intensity Bilateral Knee: Pain Intensity: 0 Notes Mental Status: alert / awake / arousable and participated in evaluation Patient Amnestic to Procedure: Yes Nausea / Vomiting: adequately controlled Pain: adequately controlled Airway Patency, RR, SpO2: stable & adequate BP & HR: stable & adequate Hydration State: stable & adequate Neuraxial Anesthesia: sensory block resolved Anesthetic Complications: no major complications apparent
[2019-11-04] MEDS: VERAPAMIL HCL 120 MG TABCR PO SCH (08:47)
[2019-11-04] MEDS: VALSARTAN 80 MG TAB PO SCH (08:47)
[2019-11-04] MEDS: DOCUSATE SODIUM 100 MG CAP PO SCH ×2 (08:47→21:25)
[2019-11-04] MEDS: ENOXAPARIN INJ 40 MG/0.4 ML SYR SQ SCH (08:48)
[2019-11-04] MEDS: MULTIVITAMIN TAB PO SCH (08:49)
[2019-11-04] MEDS: TIMOLOL MALEATE 0.5% OP SOLN 5 ML BTL OPB SCH ×2 (08:49→21:24)
--- NOTE | 2019-11-04 09:40 | Orthopedic Progress Note ---
Date of Service November 04, 2019 Assessment & Plan (1) Degenerative joint disease of knee, right: s/p B/L TKA POD#1 -ancef x 24 -DVT ppx: SCDs, TEDs, Lovenox daily -WBAT B/L LE -PT/OT -PO XR demonstrates well aligned well fixed b/l total knee prothesis without fracture/dislocation -am labs: hgb 12.2 -DC planning: home with HH (2) Degenerative joint disease of left knee: Subjective Post Operative Progress Note Patient seen sitting up in bed, comfortable, denies complaints, pain well controlled, no acute issues. Denies F/C/N/V/SOP/CP Review of Systems Review of Systems: All systems reviewed & are unremarkable except as noted in HPI & below Constitutional: as per Subjective / HPI Physical Exam Physical Exam: RLE NVSI +EHL/FHL/TA/GS SILT grossly, +2 DP pulse, compartments soft NT, dressing cdi. LLE NVSI +EHL/FHL/TA/GS SILT grossly, +2 DP pulse, compartments soft NT, dressing cdi. Constitutional: WD/WN, vitals as above Results & Data Vital Signs (Past 12 Hours) Vital Signs Temp Pulse Resp BP Pulse Ox 11/04/19 06:45 36.7 C 78 12 134/72 96 11/04/19 02:52 36.7 C 92 H 16 123/66 97 11/03/19 22:55 36.5 C 89 16 137/72 95 Laboratory Results 11/04/19 11/04/19 Range/Units 04:45 04:45 WBC 18.54 H (4.8-10.8) K/uL RBC 4.01 L (4.7-6.1) M/uL Hgb 12.2 L (14.0-18.0) g/dL Hct 35.0 L (42-52) % MCV 87.3 (80-100) fL MCH 30.4 (25-34) pg MCHC 34.9 (32-36) g/dL RDW Std Deviation 40.6 (36.4-46.3) fL RDW Coeff of Leslie 12.6 (11.5-14.5) % Plt Count 190 (130-400) K/uL MPV 10.6 H (7.4-10.4) fL Sodium 137 (136-145) mmol/L Potassium 4.2 (3.5-5.1) mmol/L Chloride 108 H (98-107) mmol/L Carbon Dioxide 25 (21-32) mmol/L Anion Gap 4.0 (3-11) BUN 19 H (7-18) mg/dl Creatinine 1.01 (0.6-1.4) mg/dl Est Cr Clr Drug Dosing 83.2 ml/min Est GFR ( Amer) 89.4 Est GFR (Non-Af Amer) 77.1 BUN/Creatinine Ratio 19.0 (10-20) Glucose 147 H (70-99) mg/dl Calcium 8.1 L (8.5-10.1) mg/dl
[2019-11-04] MEDS: LATANOPROST 0.005% OP SOLN 2.5 ML BTL OPB SCH (21:24)
[2019-11-04] MEDS: SENNA 8.6 MG TAB PO SCH (21:25)
[2019-11-04] MEDS: ROSUVASTATIN CALCIUM 20 MG TAB PO SCH (21:25)
[2019-11-05] MEDS: OXYCODONE HCL IR 5 MG TAB (IMMEDIATE RELEASE) PO PRN ×3 (02:40→11:24)
[2019-11-05 05:25] LABS: Hematocrit (blood only) 31.3 % (42-52); Hemoglobin 10.7 g/dL (14.0-18.0); Mean Corpuscular Hemoglobin 30.1 pg (25-34); Mean Corpuscular Hgb Conc 34.2 g/dL (32-36); Mean Corpuscular Volume 88.2 fL (80-100); Mean Platelet Volume 10.5 fL (7.4-10.4); Platelet Count 161 K/uL (130-400); RDW Coefficient of Variation 12.8 % (11.5-14.5); RDW Standard Deviation 41.8 fL (36.4-46.3); Red Blood Count 3.55 M/uL (4.7-6.1); White Blood Count 10.87 K/uL (4.8-10.8)
[2019-11-05 05:47] LABS: Calcium 8.2 mg/dl (8.5-10.1); Est GFR (African American) 90.5; Est GFR (Non-African American) 78.1; Potassium 4.2 mmol/L (3.5-5.1)
[2019-11-05] MEDS: ACETAMINOPHEN 500 MG TAB PO SCH (06:00)
[2019-11-05] MEDS: DOCUSATE SODIUM 100 MG CAP PO SCH (07:27)
[2019-11-05] MEDS: ENOXAPARIN INJ 40 MG/0.4 ML SYR SQ SCH ×2 (07:27→07:30)
[2019-11-05] MEDS: VERAPAMIL HCL 120 MG TABCR PO SCH (07:27)
[2019-11-05] MEDS: MULTIVITAMIN TAB PO SCH (07:28)
[2019-11-05] MEDS: VALSARTAN 80 MG TAB PO SCH (07:29)
[2019-11-05] MEDS: TIMOLOL MALEATE 0.5% OP SOLN 5 ML BTL OPB SCH (07:29)
--- NOTE | 2019-11-05 08:36 | Orthopedic Progress Note ---
Date of Service November 05, 2019 Assessment & Plan (1) Degenerative joint disease of knee, right: s/p B/L TKA POD#2 -ancef x 24 -DVT ppx: SCDs, TEDs, Lovenox daily -WBAT B/L LE -PT/OT -PO XR demonstrates well aligned well fixed b/l total knee prothesis without fracture/dislocation -am labs: hgb 10.7 -DC planning: home with HH (2) Degenerative joint disease of left knee: Subjective Post Operative Progress Note Patient seen sitting at bedside, comfortable, denies complaints, pain well controlled, no acute issues. Denies F/C/N/V/SOP/CP Review of Systems Review of Systems: All systems reviewed & are unremarkable except as noted in HPI & below Constitutional: as per Subjective / HPI Physical Exam Physical Exam: LLE NVSI +EHL/FHL/TA/GS SILT grossly, +2 DP pulse, compartments soft NT, incision cdi. RLE NVSI +EHL/FHL/TA/GS SILT grossly, +2 DP pulse, compartments soft NT, incision cdi. Constitutional: WD/WN, vitals as above Results & Data Vital Signs (Past 12 Hours) Vital Signs Temp Pulse Resp BP Pulse Ox 11/05/19 06:30 36.7 C 68 16 126/71 96 11/04/19 23:05 36.7 C 73 16 118/64 95 Laboratory Results 11/05/19 11/05/19 Range/Units 04:52 04:52 WBC 10.87 H (4.8-10.8) K/uL RBC 3.55 L (4.7-6.1) M/uL Hgb 10.7 L (14.0-18.0) g/dL Hct 31.3 L (42-52) % MCV 88.2 (80-100) fL MCH 30.1 (25-34) pg MCHC 34.2 (32-36) g/dL RDW Std Deviation 41.8 (36.4-46.3) fL RDW Coeff of Leslie 12.8 (11.5-14.5) % Plt Count 161 (130-400) K/uL MPV 10.5 H (7.4-10.4) fL Sodium 139 (136-145) mmol/L Potassium 4.2 (3.5-5.1) mmol/L Chloride 108 H (98-107) mmol/L Carbon Dioxide 27 (21-32) mmol/L Anion Gap 4.0 (3-11) BUN 21 H (7-18) mg/dl Creatinine 1.00 (0.6-1.4) mg/dl Est Cr Clr Drug Dosing 84.0 ml/min Est GFR ( Amer) 90.5 Est GFR (Non-Af Amer) 78.1 BUN/Creatinine Ratio 21.0 H (10-20) Glucose 90 (70-99) mg/dl Calcium 8.2 L (8.5-10.1) mg/dl
--- NOTE | 2019-11-05 21:46 | Discharge Summary ---
Date of Service November 05, 2019 Admission HPI Per Admitting Provider The patient is a 68 year old male who presents with complaints of severe bilateral knee pain and DJD. The patient has failed outpatient conservative treatments to this point which included NSAIDs, IA corticosteroid injections, home exercise/walking program. The patient's pain and limited function have progressed to the point where they severely hinder their activities of daily living and they no longer tolerate exercise programs. They are requesting to proceed with total knee replacement surgery. Principal Diagnosis Bilateral total knee replacements Discharge Exam RLE NVSI +EHL/FHL/TA/GS SILT grossly, +2 DP pulse, compartments soft NT, dressing cdi. LLE NVSI +EHL/FHL/TA/GS SILT grossly, +2 DP pulse, compartments soft NT, dressing cdi. Constitutional WD/WN, vitals as above Discharge Data Allergies Allergy/AdvReac Type Severity Reaction Status Date / Time No Known Allergies Allergy Verified 11/03/19 05:37 Consultations 11/03/19 11:48 Consult Case Management - Discharge Planning Routine Procedures Performed Operation Date: 11/03/19 07:00 Actual Procedures p Bilateral Total Knee Arthroplasty(Bilateral) - Garth Owen DO Ordered Studies 11/03/19 05:00 US - OR guided needle placemen Routine Hospital Course (1) Degenerative joint disease of knee, right: The patient is a 68 -year-old male who presents with long standing history of severe bilateral knee DJD and failed outpatient conservative treatments. The patient's symptoms have progressed to the point where it has been difficult to perform even normal activities of daily living. I indicated the patient for a bilateral total knee arthroplasty, the risks, benefits and complications of the procedure include but not limited to infection, bleeding, damage to bone, nerves, vessels, surrounding soft tissue, may develop blood clots, loss of function, leg length discrepancy, dislocation, failure of the components, loosening of the components, the need for additional surgery and . The patient wished to proceed with surgery at this time and informed consent was obtained. Hospital Course: On 11/03/19 the patient was taken to the operating room, adequate anesthesia administered and underwent a bilateral total knee arthroplasty. The patient tolerated the procedure well and was taken to the PACU in stable condition. Post-operatively the patient was started on a DVT ppx medication and given appropriate IV antibiotics. Consults were placed to physical therapy, occupational therapy and case management. On POD#1, the patient did well overnight and their pain was well controlled. Labs were drawn and the Hgb was 12.2. The patient progressed well with PT. On POD#2, the patient continued to do well and progressed with PT. There were no acute issues overnight and the patients pain was well controlled. Labs drawn, hgb 10.7. Dressings were changed at this time and the incision was clean, dry and intact. The patients hospital stay was relatively uneventful and they were deemed stable by the orthopedic team and consultants to be discharged home with on 11/05/19. Discharge Instructions: Upon discharge the patient may weight bear as tolerates through their operative extremities. They were instructed to keep the incision clean and dry at all times. The patient may shower but should not submerge the incision, avoid bathing, pools and hot tubes. The patient was given a script for pain medication and should take as instructed. The patient was given a script for DVT ppx Lovenox 40mg daily and should take as directed. The patient was instructed to not drive or travel for long distances until cleared to do so. If the patient develops any symptoms of fevers, chills, nausea, vomiting, increased redness, swelling, pain or drainage from the surgical site, they should notify the office and/or proceed to the nearest emergency room. The patient should follow up in 10-14 days after surgery for their routine post-operative follow-up appointment and should call the office to confirm the date and time. s/p B/L TKA POD#2 -ancef x 24 -DVT ppx: SCDs, TEDs, Lovenox daily -WBAT B/L LE -PT/OT -PO XR demonstrates well aligned well fixed b/l total knee prothesis without fracture/dislocation -am labs: hgb 10.7 -DC planning: home with POD#1 -ancef x 24 -DVT ppx: SCDs, TEDs, Lovenox daily -WBAT B/L LE -PT/OT -PO XR demonstrates well aligned well fixed b/l total knee prothesis without fracture/dislocation -am labs: hgb 12.2 -DC planning: home with (2) Degenerative joint disease of left knee: Total Time Total Time Spent Total Time Spent (In Minutes): 45 minutes Discharge Plan Discharge Items Patient Disposition: Home - Home Health Services Reason For Visit: BILATERAL KNEE OSTEOARTHRITIS Discharge Diagnosis: Bilateral total knee replacements Condition on Discharge: Good Activity: Per Instructions section Lifting: Wait until after follow-up appointment Bathing: Keep incision dry Bathing Comment: No bathing, pools or hot tubs. Sexual Activity: Wait until after follow-up appointment Exercise/Sports: Wait until after follow-up appointment Driving/Machine Use: No driving Weightbearing: Full weightbearing Non-emergency contact: Primary Care Provider and Surgeon Call non-emergency contact if: you have any medication questions, your symptoms worsen, your pain is not controlled, your pain is worsening, your pain is unusual for you, your pain is concerning for you, you have a fever, your temperature is above 101, your wound has increased redness, your wound has increased drainage and your wound pain has increased Follow-up/Referrals: CYNDI SHAH D.O. [Primary Care Provider] - Diet: Regular Addtl Attending Provider Instructions: ACTIVITY RECOMMENDATIONS: SELF CARE INSTRUCTIONS AFTER BILATERAL TOTAL KNEE REPLACEMENTS A. You may need to continue a physical therapy program after discharge from the hospital. There are several options available to you. Your doctor will assist you in selecting the best one for you. 1. An out-patient facility 2 to 3 times a week for therapy or home therapy. 2. Continue working on all exercises taught to you in the hospital. Your goals should be to increase bending of your knee to 90 degrees and beyond and to fully straighten your knee. B. You may progress at your own pace from walking with a walker or crutches to a cane; then to no assistive devices. C. Make walking a part of your daily routine. Be up as much as comfortable with rest periods throughout the day. Rest with leg elevation is very important. Use the ice wrap frequently for the first 3-4 weeks. D. There are no restrictions on activities. You may ride in a car, shop, participate in bpm analyst and all social activities. E. Wear the long elastic stockings (ABILIO hose) 20 hours a day for 2 weeks after surgery. They can be removed several times a day for laundering and for a bath. F. You may shower, no tub baths until cleared by your doctor. SPECIAL CARE INSTRUCTIONS: VERY IMPORTANT TO READ AND REVIEW A. There are a few signs you need to watch for after you are home. Call [facility] if you notice any of the followin. Increased severe knee pain. Some pain is expected especially when you exercise. 2. Increased swelling in your leg or knee; pain or swelling of the calf muscle in either lower leg. 3. Any fluid drainage from the incision. 4. Shortness of breath or chest pain. B. Please call [facility] at if you have any concerns or questions about your operation or recovery. The doctor or his nurse will return your call promptly. C. You must take antibiotics before dental work, bladder, bowel or other surgery. Your doctor will provide you with a permanent care to carry describing this precaution. IMPORTANT: * REMEMBER TO TAKE LOVENOX DAILY FOR 4 WEEKS UNLESS OTHERWISE DIRECTED. THIS IS YOUR BLOOD THINNER. * HIGH RISK PATIENTS MAY BE PRESCRIBED A STRONGER BLOOD THINNER. THIS WILL BE PROVIDED AT DISCHARGE. * CALL IF INCREASED PAIN, REDNESS, DRAINAGE OR FEVER GREATER THAT 101. * WEAR ABILIO HOSE 20 HOURS PER DAY FOR 2 WEEKS. *DERMABOND Prineo- This is a mesh tape dressing that is covered with glue. It should remain in place until the incision is properly healed, usually 10-14 days. This dressing is designed to naturally slough off. You may trim the excess mesh tape as it peels off. Incision may be briefly wet in a shower. Dry immediately by blotting with a clean, dry towel. Do not bath or swim until instructed by your doctor. Do not scratch, rub, or pick at the dressing. Do not apply any topical ointments or lotions until dressing is completely removed and/or instructed by your doctor. There may be a small piece of suture material at one end of your incision. Do not pull or trim this. If it is bothersome or catching on clothing, you may cover it with a band-aid. *IF INCISION IS LEAKING THROUGH DRESSING, CALL THE OFFICE . FOLLOW UP VISIT: If appointment is not already scheduled: Please call [facility] to make a follow-up appointment for 2 weeks after your surgery at . Pending Studies at Discharge: No Stand-Alone Forms: My Vdancer, Opioid Pain Management, Smoking Cessation Medications and DC Order Prescriptions: New acetaminophen 500 mg Tablet 1,000 mg PO Q8 PRN (Reason: pain) Qty: 90 RF: 0 oxycodone 5 mg Tablet 5 mg PO Q6H MDD 6 tabs PRN (Reason: pain) Qty: 30 RF: 0 enoxaparin 40 mg/0.4 mL Syringe 40 mg subcut Q24H Qty: 28 RF: 0 sennosides [Senokot] 8.6 mg Tablet 17.2 mg PO HS PRN (Reason: constipation) Qty: 28 RF: 0 Continued latanoprost 0.005 % Drops 1 drp OPHTHALMIC (EYE) PM RF: 0 timolol 0.5 % Drops 1 drp OPHTHALMIC (EYE) BID RF: 0 fexofenadine-pseudoephedrine [Dayna-D 12 Hour] 60-120 mg Tablet Extended Release 12 Hr 1 tab PO Q12H PRN (Reason: Allergy Symptoms) RF: 0 valsartan 160 mg Tablet 160 mg PO QAM RF: 0 rosuvastatin 20 mg Tablet 20 mg PO QPM RF: 0 Viagra 1 tab PO UD PRN (Reason: Erectile Dysfunction) RF: 0 verapamil tablet 120 mg PO DAILY RF: 0 Discharge Orders: Discharge Order (Routine); Ordered 11/05/19 Ordered By: Garth Regan/Other Patient Handouts: Surgery Prevent DVT After, ED Stockings Abilio Admission Data Admit Date/Time: 11/03/19 11:07 Attending Provider: Garth Owen Admit Provider: Garth Owen Primary Care Provider: CYNDI SHAH Other Interventions: Discharge Summary Assessment (RN) Last Done: 11/05/19 09:47 DC Date/Time DO NOT enter until pt leaves facility: 11/05/19 12:56
== END 2019-11-05 12:56 | disposition home health service (06) | DRG 462 ==
LOC: ASU 04:50 → 3E 11:07